=== PATIENT | male | born 1950 | race Caucasian/White ===

== ENCOUNTER 2023-08-03 10:14 | Emergency (ER) | payer MEDICARE ==
[~2023-08-03] VITALS: Ht 175.3 cm; Wt 95.3 kg
[2023-08-03 10:16] VITALS: BP_SYST 161; PULSE 79; RESP 18; TEMP 98.3; O2SAT 96
[2023-08-03] MEDS: METHOCARBAMOL 1000 MG/10 ML VIAL IVP ONE (10:41)
[2023-08-03] MEDS: KETOROLAC TROMETHAMINE 30 MG VIAL IVP ONE (10:41)
[2023-08-03] MEDS: HYDROcodone/ACETAMIN 5-325 MG TAB (NORCO/ VICODIN) PO ONE (10:42)
[2023-08-03] MEDS ORDERED: KETAMINE HCL IN 0.9 % NACL 50 MG/5 ML SYRINGE ONE (11:37)
[2023-08-03] MEDS: KETAMINE 30 MG/3 ML SYRINGE 30 MG in NS 100 ML IV ONE (11:45)
[2023-08-03 11:51] LABS: BILIRUBIN,URINE NEGATIVE (NEGATIVE); CLARITY/URINE CLEAR (CLEAR); COLOR,URINE YELLOW (YELLOW); GLUCOSE,URINE NEGATIVE (NEGATIVE); KETONES,URINE NEGATIVE (NEGATIVE); LEUKOCYTE ESTERASE ,URINE NEGATIVE (NEGATIVE); NITRITE, URINE NEGATIVE (NEGATIVE); PROTEIN URINE NEGATIVE (NEGATIVE); UROBILINOGEN,URINE 0.2 (0.2-1.0)
[2023-08-03 11:52] LABS: BLOOD, URINE TRACE (NEGATIVE)
[2023-08-03 12:01] LABS: BACTERIA,URINE RARE /HPF (None Seen); MUCUS,URINE None Seen /LPF (None Seen); RBC,URINE 0-3 /HPF (0-3); WBC,URINE 0-3 /HPF (0-3)
[2023-08-03 12:23] LABS: BASOPHILS % (AUTO) 0.3 % (0.0-2.0); EOSINOPHILS % (AUTO) 0.2 % (0.0-4.0); HEMATOCRIT 42.3 % (36-54); HEMOGLOBIN 13.9 g/dL (14.0-18.0); LYMPHOCYTES # (AUTO) 1.1 K/uL (1.0-5.5); LYMPHOCYTES % (AUTO) 12.1 % (20.5-51.5); MEAN CORPUSCULAR HEMOGLOBIN 28 pg (27-31); MEAN CORPUSCULAR HGB CONC 33 % (32-36); MEAN CORPUSCULAR VOLUME 86 fL (79.0-98.0); MONOCYTES # (AUTO) 0.3 K/uL (0.0-1.0); MONOCYTES % (AUTO) 2.8 % (1.7-9.3); NEUTROPHILS % (AUTO) 84.6 % (40.0-70.0); PLATELET COUNT (AUTO) 148 K/uL (130-430); RED BLOOD CELL COUNT(AUTO) 4.91 MIL/uL (4.2-6.2); RED CELL DISTRIBUTION WIDTH 14.6 % (9.0-15.0); WHITE BLOOD COUNT (AUTO) 9.4 K/uL (4.8-10.8)
[2023-08-03 12:34] LABS: ANION GAP 9 (5-15); CALCIUM 8.6 mg/dL (8.4-11.0); CARBON DIOXIDE 26 mmol/L (23-29); CHLORIDE 107 mmol/L (98-107); CREATININE 1.47 mg/dL (0.55-1.30); GLUCOSE 126 mg/dL (74-106); POTASSIUM 4.4 mmol/L (3.5-5.1); SODIUM SERUM 142 mmol/L (136-145); UREA NITROGEN, BLOOD 26 mg/dL (8-21)
[2023-08-03] MEDS ORDERED: LIDO700A30 TP (14:01)
[2023-08-03] MEDS ORDERED: HYDR-3917 PO (14:01)
[2023-08-03] MEDS ORDERED: METH-634 PO (14:01)
[2023-08-03] MEDS ORDERED: NAPR-690 PO (14:01)
[2023-08-03 14:21] VITALS: BP_SYST 177; PULSE 74; RESP 16; TEMP 97.9; O2SAT 95
== END 2023-08-03 14:19 | disposition home or self-care (01) ==
LOC: SED 10:14
DX: M54.16 Radiculopathy, lumbar region (principal); M79.661 Pain in right lower leg; Z79.899 Other long term (current) drug therapy
CPT/HCPCS: 99285; 96374; 72131; 96375; 80048; 81001; 85025; 36415; 81000; 81015; J1885; J2800